=== PATIENT | female | born 1980 | race Hispanic/Latino ===

== ENCOUNTER 2019-12-08 06:01 | Observation (INO) | payer OTHER ==
[2019-12-04 16:40] LABS: BASOPHILS % (AUTO) 0.7 % (0.0-5.0); EOSINOPHILS % (AUTO) 1.9 % (0.0-8.0); HEMATOCRIT 36.1 % (36-48); LYMPHOCYTES % (AUTO) 30.4 % (21.0-51.0); MEAN CORPUSCULAR HEMOGLOBIN 27.5 pg (27.0-33.0); MEAN CORPUSCULAR VOLUME 88.7 fL (79-99); MONOCYTES % (AUTO) 5.7 % (3.0-13.0); NEUTROPHILS % (AUTO) 61.2 % (40.0-77.0); PLATELET COUNT (AUTO) 364 K/uL (130-400); RED BLOOD CELL COUNT(AUTO) 4.07 MIL/uL (4.00-5.50); RED CELL DISTRIBUTION WIDTH 13.1 % (11.0-15.5); WHITE BLOOD COUNT (AUTO) 8.4 K/uL (4.8-10.8)
[2019-12-04 17:07] VITALS: BP 116/71
[2019-12-08] VITALS (23 sets, daily range): BP systolic 92–127; BP diastolic 47–75
[~2019-12-08] VITALS: Ht 172.7 cm; Wt 78.9 kg
[2019-12-08] MEDS ORDERED: CALDOLOR 800MG+NS 250ML 250 ML IV ONE (06:56)
[2019-12-08] MEDS: CEFAZOLIN SODIUM 1 GM VIAL IVP ONE ×2 (07:37→10:35)
[2019-12-08] MEDS ORDERED: LACTATED RINGERS 1000ML 1,000 ML IV SCH (08:00)
[2019-12-08] MEDS ORDERED: CALDOLOR 800MG+NS 250ML 250 ML IV SCH (08:00)
[2019-12-08] MEDS ORDERED: LIDOCAINE 1%-EPI 1:100,000 20 ML VIAL IJ ONE (08:58)
[2019-12-08] MEDS ORDERED: BUPIVACAINE/PF 0.25% 30ML VIAL IJ ONE (08:58)
[2019-12-08] MEDS ORDERED: SILVER SULFADIAZINE CREAM 50 GM TP ONE (09:34)
[2019-12-08] MEDS ORDERED: ESTROGENS,CONJUGATED 0.625 MG/GM 42.5 GM VAG CRM VG ONE (09:35)
[2019-12-08] MEDS ORDERED: MIDAZOLAM HCL 1 MG/ML 2ML VIAL ONE (10:08)
[2019-12-08] MEDS ORDERED: LIDOCAINE PF 2% 5ML ABBOJECT ONE (10:12)
[2019-12-08] MEDS ORDERED: KETAMINE 50MG/ML SYRINGE 50 MG/ML DISP.SYRIN IV ONE (10:12)
[2019-12-08] MEDS ORDERED: SUCCINYLCHOLINE CHLORIDE 20 MG/ML 10 ML VIAL ONE (10:12)
[2019-12-08] MEDS ORDERED: PROPOFOL 10 MG/ML 20ML VIAL IV ONE (10:13)
[2019-12-08] MEDS ORDERED: ROCURONIUM 10MG/1ML SYR 10 MG/ML ML ONE (10:14)
[2019-12-08] MEDS ORDERED: MEPERIDINE-PF 25 MG/ML SYG ONE ×2 (10:24)
[2019-12-08] MEDS ORDERED: FENTANYL CITRATE PF 50 MCG/1 ML 2ML VIAL ONE (10:48)
[2019-12-08] MEDS ORDERED: MAGNESIUM SULFATE 4.06 MEQ/ML ***TPN USE ONLY IJ ONE (10:51)
[2019-12-08] MEDS ORDERED: PHENYLEPHRINE HCL 10 MG/ML 1ML VIAL IV ONE (12:03)
[2019-12-08] MEDS ORDERED: NEOSTIGMINE 5MG/5ML SYR IV ONE (12:11)
[2019-12-08] MEDS ORDERED: GLYCOPYRROLATE 1 MG/5 ML SYRINGE ONE (12:11)
[2019-12-08] MEDS ORDERED: DEXTROSE 5 %-0.45 % NACL 1,000 ML IV PRN (12:20)
[2019-12-08] MEDS ORDERED: MEPERIDINE-PF 75 MG/ML SYG IM PRN (12:30)
[2019-12-08] MEDS ORDERED: PROMETHAZINE HCL 25 MG/ML 1ML AMPULE IM PRN ×2 (12:30)
[2019-12-08] MEDS ORDERED: IBUPROFEN 600 MG TABLET PO PRN (12:30)
[2019-12-08] MEDS ORDERED: BISACODYL 10 MG SUPP.RECT RC PRN (12:30)
[2019-12-08] MEDS ORDERED: DOCUSATE SODIUM 100 MG CAP PO PRN (12:30)
[2019-12-08] MEDS: CEFAZOLIN SODIUM 1 GM VIAL IVP SCH ×2 (15:46→22:26)
[2019-12-08] MEDS: ACETAMINOPHEN-CODEINE 300/30MG TAB PO PRN (15:53)
[2019-12-08] MEDS: CALDOLOR 800MG+NS 250ML 250 ML IV SCH (20:27)
[2019-12-09 03:31] VITALS: BP 117/73
[2019-12-09] MEDS: ACETAMINOPHEN-CODEINE 300/30MG TAB PO PRN ×2 (03:35→08:51)
[2019-12-09] MEDS: CALDOLOR 800MG+NS 250ML 250 ML IV SCH (04:21)
[2019-12-09] MEDS: CEFAZOLIN SODIUM 1 GM VIAL IVP SCH (06:05)
[2019-12-09 06:46] LABS: HEMATOCRIT 31.3 % (36-48); MEAN CORPUSCULAR HEMOGLOBIN 27.8 pg (27.0-33.0); MEAN CORPUSCULAR VOLUME 89.7 fL (79-99); RED BLOOD CELL COUNT(AUTO) 3.49 MIL/uL (4.00-5.50); RED CELL DISTRIBUTION WIDTH 13.6 % (11.0-15.5); WHITE BLOOD COUNT (AUTO) 12.6 K/uL (4.8-10.8)
[2019-12-09 07:35] VITALS: BP 116/66
[2019-12-09] MEDS: SIMETHICONE 80 MG TAB.CHEW PO PRN ×2 (08:50→11:58)
--- NOTE | 2019-12-09 11:30 | NUR ---
ROUNDING DR. JUANA HORTON AT BEDSIDE TO ASSESS AND TALK TO PT. NEW ORDERS RECEIVED FOR DISCHARGE WHEN PT PASSING FLATUS.
[2019-12-09 11:41] VITALS: BP 104/74
[2019-12-09] MEDS ORDERED: IBUPROFEN 800 MG TAB PO SCH (12:30)
--- NOTE | 2019-12-09 13:30 | NUR ---
PT STATES WAS ABLE TO PASS FLATUS.
--- NOTE | 2019-12-09 13:45 | NUR ---
DISCHARGE PT LEFT UNIT VIA WHEELCHAIR, ACCOMPANIED BY SIGNIFICANT OTHER. DENIED PAIN AND HAD NO COMPLAINTS. TRANSPORTED BY PERSONAL VEHICLE.
== END 2019-12-09 13:45 | disposition home or self-care (01) ==
LOC: DAH 06:01 → DAHIP 06:02 → DAH 06:02 → WSH 13:40
DX: N39.3 Stress incontinence (female) (male) (principal); N92.0 Excessive and frequent menstruation with regular cycle; Z98.891 History of uterine scar from previous surgery
CPT/HCPCS: 36415 ×3; 58550; 84703; 85025; 85027; 86850 ×2; 86900 ×2; 86901 ×2; 87635; 96365; 96366 ×2; 96375; 96376 ×2; A4213; A4215 ×3; A4216; A4221; A4222; A4223 ×2; A4344; A4351; A4510; A4600; A4663; A6260; C1769 ×2; G0168; G0378 ×19; J0330; J0690 ×4; J1741 ×4; J2001; J2175 ×2; J2250; J2370; J2704; J2710; J3010; J3475; J3490 ×4; J7030 ×2; J7120 ×3; U0003